=== PATIENT | male | born 1970 | race African-American/Black ===

== ENCOUNTER 2019-10-16 11:32 | Emergency (ER) | payer OTHER ==
[~2019-10-16] VITALS: Ht 182.9 cm; Wt 88.5 kg
[~2019-10-16 11:32] MED LIST: COZAAR50 MG PO; JANUMET 50-1,1 UDTAB PO; ZYRTEC10 MG PO
[2019-10-16] MEDS ORDERED: FORTAMET1000 MG (12:15)
[2019-10-16] MEDS ORDERED: JARDIANCE25 MG PO (12:15)
== END 2019-10-16 12:51 | disposition home or self-care (01) ==
LOC: ER 11:32
DX: M54.5 Low back pain (principal)

== ENCOUNTER 2020-02-22 20:43 | Inpatient (IN) | payer OTHER ==
[~2020-02-22] VITALS: Ht 182.9 cm; Wt 86.2 kg
[~2020-02-22 20:43] MED LIST changes: +FORTAMET1000 MG; +JARDIANCE25 MG PO
[2020-02-22] MEDS ORDERED: TRULICITY1.5 MG/0.5 SQ (21:39)
[2020-02-24] MEDS ORDERED: FENOFIBRATE145 MG (08:19)
[2020-02-24] MEDS ORDERED: METFORMIN HCL1000 M3 PO (08:19)
[2020-02-24] MEDS ORDERED: JARDIANCE25 MG (08:19)
[2020-02-24] MEDS ORDERED: GLIPIZIDE XL5 MG PO (08:19)
[2020-02-24] MEDS ORDERED: ATORVASTATIN CA10 MG PO (08:19)
== END 2020-02-26 13:30 | disposition home or self-care (01) | DRG 641 ==
LOC: ER 20:43 → MEDJ 02-23 14:42 → MEDI 02-23 16:23
PROVIDERS: ADMIT Internal Medicine; ATTEND Internal Medicine
DX: E86.0 Dehydration (principal); R11.2 Nausea with vomiting, unspecified; T38.3X5A Adverse effect of insulin and oral hypoglycemic [antidiabetic] drugs, initial encounter; E11.9 Type 2 diabetes mellitus without complications